=== PATIENT | male | born 1960 | race Caucasian/White ===

== ENCOUNTER → 2019-03-31 | Outpatient (CLI) | payer BC ==
[~2019-03-31] MED LIST: AUGMENTIN 875875 MG PO
== END | disposition home or self-care (01) ==
LOC: RAD 14:50
DX: M54.2 Cervicalgia (principal)

== ENCOUNTER → 2019-04-11 | Outpatient (CLI) | payer BC ==
[2019-04-11 08:51] LABS: ALBUMIN 3.2 gm/dl (3.1-4.5); ALKALINE PHOSPHATASE 84 U/L (45-117); BUN 19 mg/dl (7-24); CHLORIDE 107 mmol/L (98-107); CHOLESTEROL 136 mg/dL (<200); CPK 61 U/L (39-308); CREATININE 1.01 mg/dL (0.70-1.30); HDL CHOLESTEROL 60 mg/dl (40-60); LDL CHOLESTEROL 59 mg/dL (9-159); POTASSIUM 3.8 mmol/L (3.5-5.1); SGOT/AST 9 IU/L (3-35); SGPT/ALT 29 U/L (12-78); SODIUM 141 mmol/L (136-145); TOTAL PROTEIN 6.7 gm/dL (6.4-8.2); TRIGLYCERIDES 83 mg/dl (<150); VLDL CHOLESTEROL 17 mg/dL (6-40)
== END | disposition home or self-care (01) ==
LOC: LAB 07:09
PROVIDERS: Family Medicine
DX: E78.00 Pure hypercholesterolemia, unspecified (principal)

== ENCOUNTER → 2020-04-10 | Outpatient (CLI) | payer BC ==
[2020-04-10 07:49] LABS: ALBUMIN 3.3 gm/dl (3.1-4.5); ALKALINE PHOSPHATASE 93 U/L (45-117); BUN 15 mg/dl (7-24); CHLORIDE 106 mmol/L (98-107); CHOLESTEROL 122 mg/dL (<200); CPK 91 U/L (39-308); HDL CHOLESTEROL 42 mg/dl (40-60); LDL CHOLESTEROL 56 mg/dL (9-159); POTASSIUM 4.5 mmol/L (3.5-5.1); SGOT/AST 13 IU/L (3-35); SGPT/ALT 24 U/L (12-78); SODIUM 140 mmol/L (136-145); TOTAL PROTEIN 7.2 gm/dL (6.4-8.2); TRIGLYCERIDES 118 mg/dl (<150); VLDL CHOLESTEROL 24 mg/dL (6-40)
== END | disposition home or self-care (01) ==
LOC: LAB 06:58
PROVIDERS: ATTEND Family Medicine
DX: I25.10 Atherosclerotic heart disease of native coronary artery without angina pectoris (principal); E78.00 Pure hypercholesterolemia, unspecified

== ENCOUNTER → 2020-10-22 | Outpatient (CLI) | payer BC ==
[2020-10-22 07:57] LABS: HEMATOCRIT 40.9 % (42.0-52.0); MEAN CORPUSCULAR HGB 27.7 pg (27.0-31.0); MEAN CORPUSCULAR HGB CONC 31.8 g/dl (33.0-37.0); RED BLOOD COUNT 4.7 10*6/uL (4.50-5.90); RED CELL DISTRI WIDTH 15.2 % (0-14.5); WHITE BLOOD COUNT 8.3 10*3/uL (4.8-10.8)
[2020-10-22 08:20] LABS: ALBUMIN 3.1 gm/dl (3.1-4.5); ALKALINE PHOSPHATASE 80 U/L (45-117); BUN 15 mg/dl (7-24); CHLORIDE 107 mmol/L (98-107); CREATININE 1.13 mg/dL (0.70-1.30); SGOT/AST 11 IU/L (3-35); SGPT/ALT 21 U/L (12-78); SODIUM 136 mmol/L (136-145); TOTAL PROTEIN 7.2 gm/dL (6.4-8.2)
== END | disposition home or self-care (01) ==
LOC: LAB 07:06
PROVIDERS: ATTEND Family Medicine
DX: M19.90 Unspecified osteoarthritis, unspecified site (principal)

== ENCOUNTER → 2020-12-03 | Outpatient (CLI) | payer BC ==
[2020-12-03 12:18] LABS: HEMATOCRIT 46.2 % (42.0-52.0); MEAN CELL VOLUME 83.5 fl (80.0-94.0); MEAN CORPUSCULAR HGB 27.7 pg (27.0-31.0); MEAN CORPUSCULAR HGB CONC 33.1 g/dl (33.0-37.0); RED BLOOD COUNT 5.53 10*6/uL (4.50-5.90); RED CELL DISTRI WIDTH 14.9 % (0-14.5); WHITE BLOOD COUNT 4.3 10*3/uL (4.8-10.8)
[2020-12-03 12:53] LABS: ALBUMIN 3.2 gm/dl (3.1-4.5); ALKALINE PHOSPHATASE 70 U/L (45-117); BUN 10 mg/dl (7-24); CHLORIDE 97 mmol/L (98-107); CREATININE 1.09 mg/dL (0.70-1.30); SGOT/AST 48 IU/L (3-35); SGPT/ALT 32 U/L (12-78); SODIUM 133 mmol/L (136-145); TOTAL PROTEIN 7.8 gm/dL (6.4-8.2)
== END | disposition home or self-care (01) ==
LOC: RAD 12:02
PROVIDERS: ATTEND Family Medicine
DX: U07.1 COVID-19 (principal); R06.02 Shortness of breath; R50.9 Fever, unspecified

== ENCOUNTER → 2020-12-13 | Outpatient (CLI) | payer BC | END | disposition home or self-care (01) | LOC: RAD 11:36 | PROVIDERS: ATTEND Family Medicine | DX: U07.1 COVID-19 (principal); J12.82 Pneumonia due to coronavirus disease 2019 ==

== ENCOUNTER → 2020-12-20 | Outpatient (CLI) | payer BC | END | disposition home or self-care (01) | LOC: RAD 14:57 | PROVIDERS: ATTEND Family Medicine | DX: U07.1 COVID-19 (principal); J12.82 Pneumonia due to coronavirus disease 2019; M47.814 Spondylosis without myelopathy or radiculopathy, thoracic region ==

== ENCOUNTER → 2020-12-26 | Outpatient (CLI) | payer BC | END | disposition home or self-care (01) | LOC: CT 15:57 | PROVIDERS: ATTEND Family Medicine | DX: U07.1 COVID-19 (principal); J18.9 Pneumonia, unspecified organism; R51.9 Headache, unspecified ==

== ENCOUNTER → 2021-01-23 | Outpatient (CLI) | payer BC | END | disposition home or self-care (01) | LOC: RAD 14:56 | PROVIDERS: ATTEND Family Medicine | DX: U07.1 COVID-19 (principal); J12.82 Pneumonia due to coronavirus disease 2019 ==

== ENCOUNTER → 2021-02-05 | Outpatient (CLI) | payer BC ==
[2021-02-05 07:44] LABS: FREE T4 0.85 ng/dl (0.76-1.46)
[2021-02-05 07:49] LABS: THYROID STIM HORMONE (HS) 2.64 uIU/ml (0.358-4.75)
== END | disposition home or self-care (01) ==
LOC: LAB 00:21
PROVIDERS: ATTEND Family Medicine
DX: R94.6 Abnormal results of thyroid function studies (principal)

== ENCOUNTER → 2024-03-21 | Outpatient (CLI) | payer BC ==
[2024-03-21 08:52] LABS: ALKALINE PHOSPHATASE 67 U/L (46-116); BUN 17 mg/dl (9-23); CHLORIDE 102 mmol/L (98-107); CHOLESTEROL 150 mg/dL (<200); CPK 119 U/L (34-171); LDL CHOLESTEROL 83 mg/dL (9-159); POTASSIUM 4.3 mmol/L (3.4-5.1); SGPT/ALT 19 U/L (5-49); TOTAL PROTEIN 7.2 gm/dL (6.0-8.0); TRIGLYCERIDES 135 mg/dl (<150)
== END | disposition home or self-care (01) ==
LOC: LAB 07:14
PROVIDERS: ATTEND Family Medicine
DX: J40 Bronchitis, not specified as acute or chronic (principal); R05.9 Cough, unspecified; R06.09 Other forms of dyspnea; E78.00 Pure hypercholesterolemia, unspecified; I25.10 Atherosclerotic heart disease of native coronary artery without angina pectoris

== ENCOUNTER → 2024-12-12 | Outpatient (CLI) | payer BC | END | disposition home or self-care (01) | LOC: RAD 16:31 | PROVIDERS: ATTEND Family Medicine | DX: M54.50 Low back pain, unspecified (principal) ==

== ENCOUNTER → 2024-12-14 | Outpatient (CLI) | payer BC | END | disposition home or self-care (01) | LOC: MRI 14:15 | PROVIDERS: ATTEND Family Medicine | DX: R26.2 Difficulty in walking, not elsewhere classified (principal); M54.50 Low back pain, unspecified ==